=== PATIENT | male | born 1930 | race Two or more races ===

== ENCOUNTER 2017-07-26 13:35 | Inpatient (IN) | payer MEDICARE, MEDICAID ==
[~2017-07-26] VITALS: Ht 172.7 cm; Wt 67.6 kg
[2017-07-26] MEDS ORDERED: Sodium Chloride 500ML 500 ML IV ONE (13:51)
[2017-07-26 14:13] LABS: BASOPHILS % (AUTO) 0.7 % (0.0-2.0); EOSINOPHILS % (AUTO) 1.2 % (0.0-3.0); HEMATOCRIT 50.6 % (42.0-52.0); HEMOGLOBIN 16.3 G/DL (14.2-18.0); LYMPHOCYTES % (AUTO) 11.1 % (20.0-45.0); MEAN CORPUSCULAR VOLUME 87 FL (80-99); MONOCYTES % (AUTO) 5.4 % (1.0-10.0); NEUTROPHILS % (AUTO) 81.7 % (45.0-75.0); PLATELET COUNT 276 K/UL (150-450); RED BLOOD COUNT 5.79 M/UL (4.70-6.10); WHITE BLOOD COUNT 7.9 K/UL (4.8-10.8)
[2017-07-26] MEDS ORDERED: COLACE100 MG ORAL (14:19)
[2017-07-26] MEDS ORDERED: K-TAB10 MEQ PO (14:19)
[2017-07-26] MEDS ORDERED: BENAZEPRIL HCL20 MG ORAL (14:19)
[2017-07-26] MEDS ORDERED: ASPIRIN81 MG ORAL (14:19)
[2017-07-26 14:20] VITALS: BP 112/84
[2017-07-26 14:22] LABS: ANION GAP 10 mmol/L (5-15); BLOOD UREA NITROGEN 29 mg/dL (7-18); CALCIUM 9.7 MG/DL (8.5-10.1); CARBON DIOXIDE 24 MMOL/L (21-32); CHLORIDE 107 MMOL/L (98-107); CREATININE 1.2 MG/DL (0.55-1.30); POTASSIUM 4.1 MMOL/L (3.5-5.1); SODIUM 141 MMOL/L (136-145)
[2017-07-26] MEDS ORDERED: ZOCOR20 MG ORAL (14:22)
[2017-07-26] MEDS ORDERED: SYNTHROID100 MCG ORAL (14:22)
[2017-07-26] MEDS ORDERED: ACETAMINOPHEN325 M1 ORAL (14:22)
[2017-07-26] MEDS ORDERED: NAMENDA10 MG ORAL (14:22)
[2017-07-26] MEDS ORDERED: LACTULOSE20 GM/301 ORAL (14:22)
[2017-07-26] MEDS ORDERED: LOPID600 MG ORAL (14:22)
[2017-07-26 14:36] LABS: ALANINE AMINOTRANSFERASE 23 U/L (12-78); ALBUMIN/GLOBULIN RATIO 0.8 (1.0-2.7); ALKALINE PHOSPHATASE 138 U/L (46-116); ASPARTATE AMINO TRANSFERASE 25 U/L (15-37); BILIRUBIN,TOTAL 0.8 MG/DL (0.2-1.0); CKMB 2.6 NG/ML (0.0-3.6); CREATINE KINASE 379 U/L (26-308)
[2017-07-26] MEDS ORDERED: Azithromycin 500 MG in NS 275 ML IV ONE (15:30)
[2017-07-26] MEDS ORDERED: Piperacillin/Tazobactam 3.375 GM in NS 110 ML IVPB ONE (15:30)
[2017-07-26] MEDS ORDERED: NS 1000ml 2,200 ML IVLG ONE (15:45)
[2017-07-26 15:46] LABS: APPEARANCE,URINE CLOUDY; BILIRUBIN, URINE NEGATIVE (NEGATIVE); GLUCOSE, URINE (UA) NEGATIVE (NEGATIVE); KETONES,URINE 1+ (NEGATIVE); LEUKOCYTE ESTERASE ,URINE 1+ (NEGATIVE); NITRITE,URINE NEGATIVE (NEGATIVE); PH,URINE 5 (4.5-8.0); PROTEIN,URINE 3+ (NEGATIVE); UROBILINOGEN,URINE 4 MG/DL (0.0-1.0)
[2017-07-26] MEDS ORDERED: Zosyn 3.375gm inj ONE (15:46)
[2017-07-26 15:49] LABS: COLOR,URINE YELLOW
--- NOTE | 2017-07-26 15:57 | Emergency Room Report ---
History of Present Illness General Chief Complaint: Dyspnea/Respdistress Source: Medical Record Present Illness HPI 86-year-old male presents ED for evaluation. Patient referred from [facility] facility for evaluation of hypoxia. O2 sat here above 95% on nasal cannula. Patient has dementia is unable to provide any additional history at this time. No signs of distress. No reported chest pain or shortness of breath. No other aggravating relieving factors. No other associated symptoms Allergies: Coded Allergies: No Known Allergies (Unverified , 07/26/17) Patient History Past Medical History: dementia Past Surgical History: none Pertinent Family History: none Social History: Denies: smoking, alcohol use, drug use Immunizations: UTD Reviewed Nursing Documentation: PMH: Agreed, PSxH: Agreed Nursing Documentation-PMH Past Medical History: No History, Except For Hx Hypertension: Yes - Anemia Hx Neurological Problems: Yes - Dementia, Alzheimer's disease Review of Systems All Other Systems: limited Physical Exam Vital Signs Date Time Temp Pulse Resp B/P (MAP) Pulse Ox O2 Delivery O2 Flow Rate FiO2 07/26/17 13:32 98.6 103 14 93/69 90 Nasal Cannula 2.0 98.6 Sp02 EP Interpretation: reviewed, normal General Appearance: no apparent distress, GCS 15, non-toxic, other - dementia Head: normocephalic Eyes: bilateral eye normal inspection, bilateral eye PERRL ENT: normal ENT inspection Neck: normal inspection Respiratory: chest non-tender, crackles, speaking full sentences Cardiovascular #1: regular rate, rhythm, no edema Gastrointestinal: normal inspection Rectal: deferred Genitourinary: no CVA tenderness Musculoskeletal: normal inspection Neurologic: other - dementia Psychiatric: other - dementia Skin: normal inspection Lymphatic: normal inspection Medical Decision Making Diagnostic Impression: Primary Impression: Pneumonia Qualified Codes: J18.1 - Lobar pneumonia, unspecified organism Additional Impressions: Dyspnea Qualified Codes: R06.00 - Dyspnea, unspecified Sepsis Qualified Codes: A41.9 - Sepsis, unspecified organism ER Course Hospital Course 86-year-old M presenting to ED with hypoxia, disypnea Differential diagnoses include: Pneumonia, CHF exacerbation, pneumothorax, fluid overload Clinical course Patient placed on stretcher. 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 After initial history and physical, I ordered labs, IV fluids, EKG , chest x-ray, blood cultures, UA. Patient placed on nasal cannula with O2 saturation improving Labs -no leukocytosis, hemoglobin/hematocrit stable, electrolytes okay, lactate > 3, troponins negative EKG - NSR, no acute ischemic changes interpreted by me CXR - bilateral infiltrates abx given. Given 30 mL per KG fluid bolus Patient O2 sat remains above 90% on nasal cannula. tachycardia improving with IV fluids. Patient is DO NOT RESUSCITATE, selective treatment Case discussed with Dr. Khan and he agreed to the patient to his service for further care and support I feel this is a highly complex case requiring extensive working including EKG/ Rhythm strip, Xray/CT/US, Blood/urine lab work, repeat exams while in ED, and administration of strong opiates/narcotics for pain control, admission to hospital or close patient follow up. Diagnosis - pneumonia, dyspnea, sepsis Patient admitted to telemetry in serious condition Labs Test 07/26/17 13:40 07/26/17 14:40 07/26/17 15:15 White Blood Count 7.9 K/UL (4.8-10.8) Red Blood Count 5.79 M/UL (4.70-6.10) Hemoglobin 16.3 G/DL (14.2-18.0) Hematocrit 50.6 % (42.0-52.0) Mean Corpuscular Volume 87 FL (80-99) Mean Corpuscular Hemoglobin 28.1 PG (27.0-31.0) Mean Corpuscular Hemoglobin Concent 32.2 G/DL (32.0-36.0) Red Cell Distribution Width 13.0 % (11.6-14.8) Platelet Count 276 K/UL (150-450) Mean Platelet Volume 9.3 FL (6.5-10.1) Neutrophils (%) (Auto) 81.7 % (45.0-75.0) Lymphocytes (%) (Auto) 11.1 % (20.0-45.0) Monocytes (%) (Auto) 5.4 % (1.0-10.0) Eosinophils (%) (Auto) 1.2 % (0.0-3.0) Basophils (%) (Auto) 0.7 % (0.0-2.0) Sodium Level 141 MMOL/L (136-145) Potassium Level 4.1 MMOL/L (3.5-5.1) Chloride Level 107 MMOL/L (98-107) Carbon Dioxide Level 24 MMOL/L (21-32) Anion Gap 10 mmol/L (5-15) Blood Urea Nitrogen 29 mg/dL (7-18) Creatinine 1.2 MG/DL (0.55-1.30) Estimat Glomerular Filtration Rate mL/min (>60) Glucose Level 143 MG/DL (74-106) Lactic Acid Level 2.50 mmol/L (0.66-2.22) 1.80 mmol/L (0.66-2.22) Calcium Level 9.7 MG/DL (8.5-10.1) Total Bilirubin 0.8 MG/DL (0.2-1.0) Aspartate Amino Transf (AST/SGOT) 25 U/L (15-37) Alanine Aminotransferase (ALT/SGPT) 23 U/L (12-78) Alkaline Phosphatase 138 U/L (46-116) Total Creatine Kinase 379 U/L (26-308) Creatine Kinase MB 2.6 NG/ML (0.0-3.6) Creatine Kinase MB Relative Index 0.6 Troponin I 0.000 ng/mL (0.000-0.056) Pro-B-Type Natriuretic Peptide 39 pg/mL (0-125) Total Protein 9.2 G/DL (6.4-8.2) Albumin 4.0 G/DL (3.4-5.0) Globulin 5.2 g/dL Albumin/Globulin Ratio 0.8 (1.0-2.7) Urine Color Yellow Urine Appearance Cloudy Urine pH 5 (4.5-8.0) Urine Specific [place] 1.020 (1.005-1.035) Urine Protein 3+ (NEGATIVE) Urine Glucose (UA) Negative (NEGATIVE) Urine Ketones 1+ (NEGATIVE) Urine Occult Blood 5+ (NEGATIVE) Urine Nitrite Negative (NEGATIVE) Urine Bilirubin Negative (NEGATIVE) Urine Urobilinogen 4 MG/DL (0.0-1.0) Urine Leukocyte Esterase 1+ (NEGATIVE) EKG Diagnostic Results Rate: normal Rhythm: NSR ST Segments: no acute changes ASA given to the pt in ED: No Rhythm Strip Diag. Results EP Interpretation: yes Rhythm: NSR, no PVC's, no ectopy Chest X-Ray Diagnostic Results Chest X-Ray Diagnostic Results : Chest X-Ray Ordered: Yes # of Views/Limited/Complete: 1 View Indication: Shortness of Breath EP Interpretation: Yes Interpretation: no consolidation, no pneumothorax, other - L infiltrate Impression: Other - PNA Electronically Signed by: Electronically signed by Viktor Pinzon MD Last Vital Signs Date Time Temp Pulse Resp B/P (MAP) Pulse Ox O2 Delivery O2 Flow Rate FiO2 07/26/17 14:20 99 8 112/84 98 Nasal Cannula 2.0 07/26/17 13:32 98.6 98.6 Status: improved Disposition: ADMITTED INPATIENT Condition: Serious Referrals: Cesar Khan MD (PCP) VIKTOR PINZON M.D. Jul 26, 2017 15:57
[2017-07-26 16:30] VITALS: BP 141/77
[2017-07-26] MEDS ORDERED: Azithromycin 500mg Inj IV ONE (16:47)
[2017-07-26 17:00] VITALS: BP 141/77
[2017-07-26 17:30] VITALS: BP 141/79
[2017-07-26] MEDS ORDERED: LACTULOSE10 GM/153 PO (18:26)
[2017-07-26 20:00] VITALS: BP 142/80
[2017-07-26] MEDS: Lactulose 20gm/30ml UDC ORAL SCH (20:00)
[2017-07-26] MEDS: Docusate 100mg cap ORAL SCH (21:00)
[2017-07-27] VITALS: BP 135/74
--- NOTE | 2017-07-27 02:45 | Consultation ---
DATE OF CONSULTATION: 07/26/2017 CARDIOLOGY CONSULTATION REFERRING PHYSICIAN: Cesar Khan M.D. REASON FOR CONSULTATION: Management of hypotension. HISTORY OF PRESENT ILLNESS: The patient is a resident of a shelter facility under the supervision of Dr. Khan, who was brought in to the emergency department of [facility] for evaluation of hypoxia. At the time of arrival to the hospital, the patient was not communicating verbally due to his underlying dementia. There were no signs of distress. He was found to be hypotensive with blood pressure of 93/69 mmHg and tachycardic with heart rate of 103. He was started on IV fluid as well as IV antibiotic in the emergency department. Cardiology consultation was made at the request of Dr. Khan for assessment and evaluation of this patient. The patient is currently in the emergency department and is seen in Cardiology consultation. He is not verbally communicating due to his underlying dementia. His blood pressure has gone up to 161/91 mmHg after onset of IV fluid. PAST MEDICAL HISTORY: Including dementia and history of anemia. PAST SURGICAL HISTORY: None. MEDICATIONS: List of medications from the nursing facility, acetaminophen 650 mg q.4 h. p.r.n. pain, aspirin 81 mg p.o. daily, benazepril 20 mg p.o. q.12 h., Colace 200 mg p.o. nightly, Lopid 600 mg p.o. daily, lactulose mL three times daily, Synthroid 100 mcg p.o. daily, memantine 10 mg p.o. twice daily, K-Tab 20 mEq p.o. daily, and Zocor 20 mg p.o. nightly. SOCIAL HISTORY: There is no history of tobacco, alcohol, or illicit drug use. FAMILY HISTORY: No premature coronary artery disease in first-degree relative according to the records. REVIEW OF SYSTEMS: A 12-system review cannot be done due to the patient's underlying dementia and being nonverbal. PHYSICAL EXAMINATION: VITAL SIGNS: Blood pressure was 93/69, pulse of 103, respirations of 14, O2 saturation 90% on nasal cannula two liters oxygen, and temperature 98.6 degrees Fahrenheit. GENERAL: The patient is a pleasant 86-year-old gentleman, who is awake, but nonverbal, in no apparent respiratory distress. HEENT: Atraumatic and normocephalic. Anicteric. Pupils are equal, round, and reactive to light and accommodation. Extraocular muscles intact. NECK: JVP is less than 5 cm. No carotid bruits. Carotid upstroke is 2+ bilaterally. CVS: Normal S1 and S2. Regular rate and rhythm. Tachycardic. No murmurs, gallops, or rubs. PMI is at fourth intercostal space in the midclavicular line. LUNGS: Diminished breath sounds in both bases. ABDOMEN: Soft, nontender, and nondistended. No hepatosplenomegaly. Positive bowel sounds. EXTREMITIES: No evidence of edema, clubbing, or cyanosis. LABORATORY AND DIAGNOSTIC DATA: The ECG shows sinus rhythm with left axis deviation, left anterior fascicular block, but no acute ischemic features. Chest x-ray shows bilateral patchy infiltration. Laboratory findings, WBC 7.9, hemoglobin 16.3, hematocrit 50.6, and platelet count is 276,000. Sodium is 141, potassium is 4.1, chloride 107, bicarbonate 24, BUN of 29, creatinine 1.2, and glucose is 143. Calcium is 9.7. Troponin I was 0.0. ProBNP was 39. ASSESSMENT AND PLAN: The patient is a very pleasant 86-year-old gentleman, who is seen in Cardiology consultation at the request of Dr. Khan. 1. Hypotension, could be secondary to hypovolemia, questionable septic shock in view of bilateral infiltration on the chest x-ray. We will like to continue the patient's intravenous fluid as it was started in the emergency department. The patient requires intravenous antibiotic therapy as well. We will continue to monitor the patient once he arrives on the floor. We will start intravenous pressors i.e. Levophed drip should his mean arterial pressure drops below 65 mmHg. 2. A 2D echocardiography will be done to assess the hemodynamics and obtaining left ventricular systolic function. 3. History of Alzheimer's dementia. 4. History of anemia. Total amount of time spent on evaluation of this patient in the emergency department of [facility] was 45 minutes. I would like to thank, , for the courtesy of this consultation. Frank Crockett M.D. DR: Jose JOB#: [id number] CC:
[2017-07-27 04:00] VITALS: BP 131/66
[2017-07-27 08:00] VITALS: BP 124/57
[2017-07-27] MEDS: Aspirin Baby 81mg ORAL SCH (09:00)
[2017-07-27] MEDS: Memantine 10mg tab ORAL SCH ×2 (09:00→18:44)
[2017-07-27] MEDS: Lactulose 20gm/30ml UDC ORAL SCH ×3 (09:00→18:43)
[2017-07-27] MEDS ORDERED: Lactulose 20gm/30ml UDC ORAL ONE (09:00)
[2017-07-27 09:09] LABS: BASOPHILS % (AUTO) 0.9 % (0.0-2.0); EOSINOPHILS % (AUTO) 5.4 % (0.0-3.0); HEMATOCRIT 39.6 % (42.0-52.0); HEMOGLOBIN 13.2 G/DL (14.2-18.0); LYMPHOCYTES % (AUTO) 18.2 % (20.0-45.0); MEAN CORPUSCULAR VOLUME 88 FL (80-99); MONOCYTES % (AUTO) 8.4 % (1.0-10.0); NEUTROPHILS % (AUTO) 67.1 % (45.0-75.0); PLATELET COUNT 220 K/UL (150-450); RED BLOOD COUNT 4.52 M/UL (4.70-6.10); RED CELL DISTRIBUTION WIDTH 13.1 % (11.6-14.8); WHITE BLOOD COUNT 4.8 K/UL (4.8-10.8)
[2017-07-27 09:57] LABS: ALANINE AMINOTRANSFERASE 17 U/L (12-78); ALBUMIN 3.1 G/DL (3.4-5.0); ALBUMIN/GLOBULIN RATIO 0.7 (1.0-2.7); ALKALINE PHOSPHATASE 112 U/L (46-116); ANION GAP 10 mmol/L (5-15); ASPARTATE AMINO TRANSFERASE 21 U/L (15-37); BILIRUBIN,TOTAL 0.7 MG/DL (0.2-1.0); BLOOD UREA NITROGEN 21 mg/dL (7-18); CALCIUM 8.4 MG/DL (8.5-10.1); CARBON DIOXIDE 23 MMOL/L (21-32); CHLORIDE 112 MMOL/L (98-107); CREATININE 0.9 MG/DL (0.55-1.30); SODIUM 145 MMOL/L (136-145)
[2017-07-27 12:00] VITALS: BP 124/58
--- NOTE | 2017-07-27 12:08 | Diagnostic Imaging Report ---
Indication: Dyspnea Comparison: None A single view chest radiograph was obtained. Findings: There is elevation of the left hemidiaphragm. Markings are prominent at the lung bases likely due to atelectasis. Bones are osteopenic. IMPRESSION: Basilar atelectasis. Mildly elevated left hemidiaphragm
[2017-07-27] MEDS: cefTRIAXone 1 GM in NS 55 ML IVPB SCH (14:54)
[2017-07-27] MEDS: Azithromycin 250mg tab ORAL SCH (14:56)
[2017-07-27 16:00] VITALS: BP 118/80
[2017-07-27 20:00] VITALS: BP 122/79
--- NOTE | 2017-07-27 21:15 | Consultation ---
DATE OF CONSULTATION: 07/27/2017 INFECTIOUS DISEASE CONSULTATION CONSULTING PHYSICIAN: Jacky Upton M.D. PRIMARY ATTENDING PHYSICIAN: Cesar Khan M.D. REASON FOR CONSULTATION: Pneumonia. HISTORY OF PRESENT ILLNESS: The patient is an 86-year-old male admitted yesterday from a [facility] facility because of hypoxemia. In the hospital, the patient was found to be hypotensive and tachycardic. He has no leukocytosis and no fever. The patient is not a source of history. PAST MEDICAL HISTORY: Significant for Alzheimer dementia, anemia, hypothyroidism, hypertension, and hyperlipidemia. CODE STATUS: DNR/DNI. ALLERGIES: No known drug allergy. MEDICATIONS: Getting aspirin, Namenda, potassium chloride, levothyroxine, Colace, lactulose, benazepril, got a dose of Zosyn and Zithromax in the ER. SOCIAL HISTORY: assisted resident. No history of alcohol, drug abuse, or smoking. No other history can be obtained by the patient. PHYSICAL EXAMINATION: VITAL SIGNS: Temperature 98.5, blood pressure 124/57, pulse 95, but he was earlier bradycardic with pulse of 48. GENERAL APPEARANCE: No acute distress. HEENT: Head and neck, pink conjunctiva. Has no teeth. HEART: S1 and S2, regular. LUNGS: Clear. ABDOMEN: Soft. EXTREMITIES: No edema. SKIN: No pressure ulcer. LABORATORY AND DIAGNOSTIC DATA: Sodium 145, potassium 4, chloride 112, bicarb 23, BUN 21, and creatinine 0.9. Lactic acid initially was elevated to 2.5, now it is 1.8. WBC 4.8, hemoglobin 13.2, hematocrit 39.6, and platelets 220. UA showed RBCs too numerous to count, WBCs 5 to 10. C. difficile test was negative. Influenza A and B was negative. Urine culture so far is negative. Chest x-ray showed some atelectasis and/or infiltrate in the left side. IMPRESSION: Pneumonia with hypoxemia, hypotension, and tachycardia. The patient has Alzheimer dementia, hypothyroidism. RECOMMENDATIONS: 1. We will continue Zithromax. 2. We will start the patient on Rocephin. 3. We will follow up the culture. At the end of my exam, I thank Dr. Khan for involving me in the care of this patient. Jacky Upton M.D. DR: Cyndi JOB#: [id number] CC: PABLITO
[2017-07-27] MEDS: Docusate 100mg cap ORAL SCH (21:54)
[2017-07-28] VITALS: BP 130/68
[2017-07-28 04:00] VITALS: BP 138/80
[2017-07-28 08:00] VITALS: BP 167/117
[2017-07-28] MEDS: Azithromycin 250mg tab ORAL SCH (08:54)
[2017-07-28] MEDS: Aspirin Baby 81mg ORAL SCH (08:54)
[2017-07-28] MEDS: Memantine 10mg tab ORAL SCH ×2 (08:55→17:27)
[2017-07-28] MEDS: Lactulose 20gm/30ml UDC ORAL SCH ×2 (08:55→13:38)
--- NOTE | 2017-07-28 09:15 | History and Physical Report ---
DATE OF ADMISSION: 07/26/2017 HISTORY OF PRESENT ILLNESS: The patient comes in from a custodial because of shortness of breath, admitted for rule out sepsis and pneumonia. The patient was also hypoxic and tachycardic at the custodial. The patient has advanced dementia, cannot obtain a reliable history from the patient. Again, cannot obtain any history from the patient due to advanced dementia. PAST MEDICAL HISTORY: GERD, hypertension, advanced dementia, and rash. PAST SURGICAL HISTORY: Denies any surgery. ALLERGIES: Apparently no allergies. MEDICATIONS: Refer to his med list in the chart. FAMILY HISTORY: Noncontributory. SOCIAL HISTORY: Again, he has no history of smoking, alcohol, or illicit drugs. REVIEW OF SYSTEMS: Unable to obtain. Poor historian. PHYSICAL EXAMINATION: GENERAL: Well developed . HEENT: PERRLA. NECK: Supple. CHEST: Clear to auscultation. Decreased breath sounds on both sides. CARDIOVASCULAR: The patient was initially tachycardic. ABDOMEN: Soft, nontender, and nondistended. No organomegaly. EXTREMITIES: No edema. NEUROLOGIC: Does not follow neurological exam. ASSESSMENT AND PLAN: 1. Sepsis. 2. Tachycardia. 3. Hypoxia. Admitted for shortness of breath, sepsis, pneumonia, tachycardia, hypoxia, and pneumonia. I have asked Dr. Eric Polanco, Dr. Parikh, and Dr. Crockett to see the patient for the above-mentioned diagnoses and treatment. Antibiotics per Infectious Disease, and we will monitor the patient closely. We will check oxygen levels every day and we will monitor the patient closely. Cesar Khan M.D. DR: JESSICA JOB#: [id number] CC:
--- NOTE | 2017-07-28 11:03 | Infectious Diseases Prog Note ---
Assessment/Plan Assessment/Plan A: Pneumonia Atelectasis Alzheimer dementia HPN P: Continue Zithromax & Rocephin Subjective ROS Limited/Unobtainable: Yes Allergies: Coded Allergies: No Known Allergies (Unverified , 07/26/17) Objective Vital Signs Last 24 Hour Vital Signs Date Time Temp Pulse Resp B/P (MAP) Pulse Ox O2 Delivery O2 Flow Rate FiO2 07/28/17 08:55 167/117 07/28/17 08:00 97.2 90 20 167/117 96 Room Air 97.2 07/28/17 04:00 97.9 89 19 138/80 97 Room Air 97.9 07/28/17 04:00 99 07/28/17 00:00 110 07/28/17 00:00 97.8 92 20 130/68 97 Room Air 97.8 07/27/17 21:54 118/80 07/27/17 20:00 98.0 100 22 122/79 97 Room Air 98.0 07/27/17 16:00 97.6 87 22 118/80 96 Room Air 97.6 07/27/17 16:00 86 07/27/17 12:00 44 07/27/17 12:00 97.0 53 19 124/58 99 Room Air 97.0 Height (Feet): 5 Height (Inches): 8.00 Weight (Pounds): 149 General Appearance: no acute distress HEENT: mucous membranes moist Respiratory/Chest: lungs clear Cardiovascular: normal rate Abdomen: soft, non tender Extremities: no edema Neurologic/Psychiatric: disoriented Microbiology Date/Time Source Procedure Growth Status 07/26/17 13:30 Blood Blood Culture - Preliminary NO GROWTH AFTER 24 HOURS Resulted 07/26/17 13:30 Blood Blood Culture - Preliminary NO GROWTH AFTER 24 HOURS Resulted 07/26/17 18:00 Nasal Nares MRSA Culture - Final NO METHICILLIN RESISTANT STAPH AUREUS... Complete 07/26/17 14:15 Nasal Nares Influenza Types A,B Antigen (LLUVIA) - Final Complete 07/26/17 13:40 Stool Clostridium difficile Toxin Assay - Final Complete 07/26/17 15:15 Urine,Clean Catch Urine Culture - Preliminary NO GROWTH AFTER 24 HOURS Resulted 07/26/17 18:00 Rectum VRE Culture - Final NO VANCOMYCIN RESISTANT ENTEROCOCCUS ... Complete Current Medications Medications (Trade) Dose Ordered Sig/Rex Route PRN Reason Start Time Stop Time Status Last Admin Dose Admin Acetaminophen (Tylenol) 650 mg Q6HR PRN ORAL Fever/Headache/Mild Pain 07/26/17 19:30 08/25/17 19:29 Aspirin (ASA) 81 mg DAILY ORAL 07/27/17 09:00 08/26/17 08:59 07/28/17 08:54 Azithromycin (Zithromax) 250 mg DAILY ORAL 07/27/17 12:00 08/03/17 11:59 07/28/17 08:54 Benazepril HCl (Lotensin) 20 mg Q12HR ORAL 07/26/17 21:00 08/25/17 20:59 07/28/17 08:55 Ceftriaxone Sodium 1 gm/ Sodium Chloride 55 ml @ 110 mls/hr Q24H IVPB 07/27/17 13:00 08/03/17 12:59 07/27/17 14:54 Dextrose (Dextrose 50%) STAT PRN IV Hypoglycemia 07/26/17 19:30 08/25/17 19:29 Docusate Sodium (Colace) 200 mg BEDTIME ORAL 07/26/17 21:00 08/25/17 20:59 07/27/17 21:54 Lactulose (Cephulac) 60 gm TID ORAL 07/26/17 20:00 08/25/17 19:59 07/28/17 08:55 Levothyroxine Sodium (Synthroid) 100 mcg DAILY@0630 ORAL 07/27/17 06:30 08/26/17 06:29 07/28/17 06:33 Memantine (Namenda) 10 mg BID ORAL 07/27/17 09:00 08/26/17 08:59 07/28/17 08:55 Potassium Chloride (K-Dur) 20 meq DAILY ORAL 07/27/17 09:00 08/26/17 08:59 07/28/17 08:55 AUDRA MORALES Jul 28, 2017 11:03
[2017-07-28 12:00] VITALS: BP 130/88
--- NOTE | 2017-07-28 13:40 | Consultation ---
History of Present Illness General Date patient seen: Jul 28, 2017 Chief Complaint: Dyspnea/Respdistress Referring physician: Dr. Khan Reason for Consultation: dyspnea Present Illness HPI 86-year-old male with hx of dementia, hypothyroid, hypertension, snf resident presented to ED for evaluation of hypoxia. O2 sat here above 95% on nasal cannula. No signs of distress. No reported chest pain or shortness of breath. No other aggravating relieving factors. No other associated symptoms. Pt can't give any history, but looks comfortable. Allergies: Coded Allergies: No Known Allergies (Unverified , 07/26/17) Medication History Scheduled Aspirin* (Aspirin*), 81 MG ORAL DAILY, (Reported) Benazepril Hcl* (Benazepril Hcl*), 20 MG ORAL EVERY 12 HOURS, (Reported) Docusate Sodium* (Colace*), 200 MG ORAL BEDTIME, (Reported) Gemfibrozil* (Lopid*), 600 MG ORAL DAILY, (Reported) Lactulose (Lactulose*), 90 ML ORAL TID, (Reported) Lactulose (Lactulose), 60 GM PO TID, (Reported) Levothyroxine Sodium* (Synthroid*), 100 MCG ORAL DAILY, (Reported) Memantine Hcl* (Namenda*), 10 MG ORAL TWICE A DAY, (Reported) Potassium Chloride (K-Tab), 20 MEQ PO DAILY, (Reported) Simvastatin (Zocor), 20 MG ORAL BEDTIME, (Reported) Scheduled PRN Acetaminophen* (Acetaminophen 325MG Tablet*), 650 MG ORAL Q6H PRN for For Pain, (Reported) Patient History Healthcare decision maker Resuscitation status Do Not Resuscitate Advanced Directive on File Past Medical/Surgical History Past Medical/Surgical History: (1) At high risk for aspiration (2) Hypothyroid (3) Dementia Review of Systems All Other Systems: negative except mentioned in HPI Physical Exam General Appearance: WD/WN Lines, tubes and drains: peripheral HEENT: normocephalic, atraumatic Neck: non-tender, normal alignment Respiratory/Chest: chest wall non-tender, lungs clear Breasts: no masses Cardiovascular/Chest: normal peripheral pulses Abdomen: normal bowel sounds, soft Genitourinary/Rectal: normal genital exam Extremities: normal range of motion Skin Exam: normal pigmentation Last 24 Hour Vital Signs Date Time Temp Pulse Resp B/P (MAP) Pulse Ox O2 Delivery O2 Flow Rate FiO2 07/28/17 12:00 98.0 79 130/88 97 Room Air 98.0 07/28/17 08:55 167/117 07/28/17 08:00 101 07/28/17 08:00 97.2 90 20 167/117 96 Room Air 97.2 07/28/17 04:00 97.9 89 19 138/80 97 Room Air 97.9 07/28/17 04:00 99 07/28/17 00:00 110 07/28/17 00:00 97.8 92 20 130/68 97 Room Air 97.8 07/27/17 21:54 118/80 07/27/17 20:00 98.0 100 22 122/79 97 Room Air 98.0 07/27/17 16:00 97.6 87 22 118/80 96 Room Air 97.6 07/27/17 16:00 86 Intake and Output 07/27/17 07/28/17 19:00 07:00 Intake Total 355 ml Output Total 400 ml Balance 355 ml -400 ml Intake Oral 300 ml IV Total 55 ml Output Urine Total 400 ml # Voids 1 Height (Feet): 5 Height (Inches): 8.00 Weight (Pounds): 149 Medications Current Medications Medications (Trade) Dose Ordered Sig/Rex Route PRN Reason Start Time Stop Time Status Last Admin Dose Admin Acetaminophen (Tylenol) 650 mg Q6HR PRN ORAL Fever/Headache/Mild Pain 07/26/17 19:30 08/25/17 19:29 Aspirin (ASA) 81 mg DAILY ORAL 07/27/17 09:00 08/26/17 08:59 07/28/17 08:54 Azithromycin (Zithromax) 250 mg DAILY ORAL 07/27/17 12:00 08/03/17 11:59 07/28/17 08:54 Benazepril HCl (Lotensin) 20 mg Q12HR ORAL 07/26/17 21:00 08/25/17 20:59 07/28/17 08:55 Ceftriaxone Sodium 1 gm/ Sodium Chloride 55 ml @ 110 mls/hr Q24H IVPB 07/27/17 13:00 08/03/17 12:59 07/27/17 14:54 Dextrose (Dextrose 50%) STAT PRN IV Hypoglycemia 07/26/17 19:30 08/25/17 19:29 Docusate Sodium (Colace) 200 mg BEDTIME ORAL 07/26/17 21:00 08/25/17 20:59 07/27/17 21:54 Lactulose (Cephulac) 60 gm TID ORAL 07/26/17 20:00 08/25/17 19:59 07/28/17 08:55 Levothyroxine Sodium (Synthroid) 100 mcg DAILY@0630 ORAL 07/27/17 06:30 08/26/17 06:29 07/28/17 06:33 Memantine (Namenda) 10 mg BID ORAL 07/27/17 09:00 08/26/17 08:59 07/28/17 08:55 Potassium Chloride (K-Dur) 20 meq DAILY ORAL 07/27/17 09:00 08/26/17 08:59 07/28/17 08:55 Assessment/Plan Problem List: (1) Sepsis ICD Codes: A41.9 - Sepsis, unspecified organism SNOMED: 99984295 Qualifiers: Qualified Codes: A41.9 - Sepsis, unspecified organism (2) At high risk for aspiration ICD Codes: Z91.89 - Other specified personal risk factors, not elsewhere classified SNOMED: 343329226 (3) Dementia ICD Codes: F03.90 - Unspecified dementia without behavioral disturbance SNOMED: 07563131 (4) Hypothyroid ICD Codes: E03.9 - Hypothyroidism, unspecified SNOMED: 74621630 (5) Pneumonia ICD Codes: J18.9 - Pneumonia, unspecified organism SNOMED: 209656789 Qualifiers: Qualified Codes: J18.1 - Lobar pneumonia, unspecified organism Assessment/Plan respiratory treatment npo swallow evaluation titrate fio2 to sat of 92% sputum induction abx as per ID check echo cardiac evaluation, ongoing med/surg considering IDA COLVIN Jul 28, 2017 13:40
[2017-07-28] MEDS: cefTRIAXone 1 GM in NS 55 ML IVPB SCH (13:43)
[2017-07-28 16:00] VITALS: BP 111/67
[2017-07-28] MEDS ORDERED: Lactulose 20gm/30ml UDC ORAL SCH (18:00)
--- NOTE | 2017-07-28 20:34 | General Progress Note ---
Assessment/Plan Problem List: (1) Dementia ICD Codes: F03.90 - Unspecified dementia without behavioral disturbance SNOMED: 96877163 (2) Pneumonia ICD Codes: J18.9 - Pneumonia, unspecified organism SNOMED: 538879339 Qualifiers: Qualified Codes: J18.1 - Lobar pneumonia, unspecified organism (3) Sepsis ICD Codes: A41.9 - Sepsis, unspecified organism SNOMED: 76445180 Qualifiers: Qualified Codes: A41.9 - Sepsis, unspecified organism Status: progressing Assessment/Plan afebrile diarrrhea dc lactulose pna sepsis abx per id Subjective Allergies: Coded Allergies: No Known Allergies (Unverified , 07/26/17) Subjective diearrhea Objective Last 24 Hour Vital Signs Date Time Temp Pulse Resp B/P (MAP) Pulse Ox O2 Delivery O2 Flow Rate FiO2 07/28/17 16:00 98.6 96 20 111/67 93 Room Air 98.6 07/28/17 16:00 98.6 96 20 111/67 93 98.6 07/28/17 12:00 95 07/28/17 12:00 98.0 79 130/88 97 Room Air 98.0 07/28/17 08:55 167/117 07/28/17 08:00 101 07/28/17 08:00 97.2 90 20 167/117 96 Room Air 97.2 07/28/17 04:00 97.9 89 19 138/80 97 Room Air 97.9 07/28/17 04:00 99 07/28/17 00:00 110 07/28/17 00:00 97.8 92 20 130/68 97 Room Air 97.8 07/27/17 21:54 118/80 Intake and Output 07/27/17 07/28/17 19:00 07:00 Intake Total 355 ml Output Total 400 ml Balance 355 ml -400 ml Intake Oral 300 ml IV Total 55 ml Output Urine Total 400 ml # Voids 1 Height (Feet): 5 Height (Inches): 8.00 Weight (Pounds): 149 Cardiovascular: normal rate Respiratory/Chest: lungs clear Abdomen: soft Cesar Khan MD Jul 28, 2017 20:34
[2017-07-28 20:36] VITALS: BP 142/70
[2017-07-28] MEDS ORDERED: Docusate 100mg cap ORAL SCH (21:00)
[2017-07-29] VITALS: BP 121/96
[2017-07-29 04:00] VITALS: BP 100/55
[2017-07-29 08:00] VITALS: BP 149/99
[2017-07-29 08:47] LABS: BASOPHILS % (AUTO) 0.6 % (0.0-2.0); HEMATOCRIT 45.6 % (42.0-52.0); HEMOGLOBIN 15.2 G/DL (14.2-18.0); LYMPHOCYTES % (AUTO) 12.3 % (20.0-45.0); MEAN CORPUSCULAR VOLUME 87 FL (80-99); MONOCYTES % (AUTO) 6.5 % (1.0-10.0); NEUTROPHILS % (AUTO) 79.6 % (45.0-75.0); PLATELET COUNT 233 K/UL (150-450); RED BLOOD COUNT 5.25 M/UL (4.70-6.10); RED CELL DISTRIBUTION WIDTH 12.6 % (11.6-14.8); WHITE BLOOD COUNT 8.5 K/UL (4.8-10.8)
[2017-07-29] MEDS ORDERED: Aspirin Baby 81mg ORAL SCH (09:00)
[2017-07-29] MEDS ORDERED: Azithromycin 250mg tab ORAL SCH (09:00)
[2017-07-29] MEDS: Memantine 10mg tab ORAL SCH (09:23)
[2017-07-29 09:41] LABS: ALANINE AMINOTRANSFERASE 21 U/L (12-78); ALBUMIN 3.3 G/DL (3.4-5.0); ALBUMIN/GLOBULIN RATIO 0.6 (1.0-2.7); ALKALINE PHOSPHATASE 112 U/L (46-116); ANION GAP 13 mmol/L (5-15); ASPARTATE AMINO TRANSFERASE 20 U/L (15-37); BILIRUBIN,TOTAL 0.8 MG/DL (0.2-1.0); BLOOD UREA NITROGEN 21 mg/dL (7-18); CALCIUM 9.1 MG/DL (8.5-10.1); CARBON DIOXIDE 22 MMOL/L (21-32); CHLORIDE 112 MMOL/L (98-107); CREATININE 1.1 MG/DL (0.55-1.30); POTASSIUM 3.6 MMOL/L (3.5-5.1); SODIUM 147 MMOL/L (136-145)
--- NOTE | 2017-07-29 10:48 | Diagnostic Imaging Report ---
APPROVED REPORT CPT Code: 31296 Present Symptoms Comments: R/O DVT Comments Technically difficult study (bilateral contractures of the hip and knee). RIGHT LEG: Venous imaging reveals recanalized chronic thrombus in the superficial femoral vein. The remainder of the deep venous system is within normal limits. There is no evidence of thrombus in the common femoral, popliteal or calf veins. The greater saphenous vein is also within normal limits. Doppler indicates normal spontaneous flow within these segments. LEFT LEG: Venous imaging reveals a patent deep venous system. There is no evidence of thrombus within the femoral, popliteal or tibial segments. The greater saphenous vein is also within normal limits. Doppler indicates normal spontaneous flow within these segments. There is no evidence of acute deep vein thrombosis.
--- NOTE | 2017-07-29 11:18 | Diagnostic Imaging Report ---
Indication: Dyspnea Comparison: 07/26/2017 A single view chest radiograph was obtained. Findings: Lung volumes are low. There is basilar atelectasis. Heart size is prominent. IMPRESSION: No change from the prior exam
--- NOTE | 2017-07-29 11:58 | Infectious Diseases Prog Note ---
Assessment/Plan Assessment/Plan A: Pneumonia Atelectasis Alzheimer dementia HPN P: Continue Zithromax & Rocephin Subjective ROS Limited/Unobtainable: Yes Allergies: Coded Allergies: No Known Allergies (Unverified , 07/26/17) Objective Vital Signs Last 24 Hour Vital Signs Date Time Temp Pulse Resp B/P (MAP) Pulse Ox O2 Delivery O2 Flow Rate FiO2 07/29/17 09:22 149/99 07/29/17 08:00 97.2 100 20 149/99 94 Room Air 97.2 07/29/17 04:00 98.2 86 19 100/55 96 Room Air 98.2 07/29/17 00:00 93 Room Air 07/29/17 00:00 98.0 113 20 121/96 93 Room Air 98.0 07/28/17 20:40 142/70 07/28/17 20:36 95 Room Air 07/28/17 20:36 98.2 97 17 142/70 95 98.2 07/28/17 16:00 98.6 96 20 111/67 93 Room Air 98.6 07/28/17 16:00 98.6 96 20 111/67 93 98.6 07/28/17 12:00 95 07/28/17 12:00 98.0 79 130/88 97 Room Air 98.0 Height (Feet): 5 Height (Inches): 8.00 Weight (Pounds): 149 General Appearance: no acute distress HEENT: mucous membranes moist Respiratory/Chest: lungs clear Cardiovascular: tachycardia Abdomen: soft, non tender Extremities: no edema Neurologic/Psychiatric: other - sleeping Microbiology Date/Time Source Procedure Growth Status 07/26/17 13:30 Blood Blood Culture - Preliminary NO GROWTH AFTER 24 HOURS Resulted 07/26/17 13:30 Blood Blood Culture - Preliminary NO GROWTH AFTER 24 HOURS Resulted 07/26/17 18:00 Nasal Nares MRSA Culture - Final NO METHICILLIN RESISTANT STAPH AUREUS... Complete 07/26/17 14:15 Nasal Nares Influenza Types A,B Antigen (LLUVIA) - Final Complete 07/26/17 13:40 Stool Clostridium difficile Toxin Assay - Final Complete 07/26/17 15:15 Urine,Clean Catch Urine Culture - Final NO GROWTH AFTER 48 HOURS Complete 07/26/17 18:00 Rectum VRE Culture - Final NO VANCOMYCIN RESISTANT ENTEROCOCCUS ... Complete Laboratory Tests Test 07/29/17 08:25 White Blood Count 8.5 K/UL (4.8-10.8) Red Blood Count 5.25 M/UL (4.70-6.10) Hemoglobin 15.2 G/DL (14.2-18.0) Hematocrit 45.6 % (42.0-52.0) Mean Corpuscular Volume 87 FL (80-99) Mean Corpuscular Hemoglobin 29.0 PG (27.0-31.0) Mean Corpuscular Hemoglobin Concent 33.4 G/DL (32.0-36.0) Red Cell Distribution Width 12.6 % (11.6-14.8) Platelet Count 233 K/UL (150-450) Mean Platelet Volume 10.0 FL (6.5-10.1) Neutrophils (%) (Auto) 79.6 % (45.0-75.0) H Lymphocytes (%) (Auto) 12.3 % (20.0-45.0) L Monocytes (%) (Auto) 6.5 % (1.0-10.0) Eosinophils (%) (Auto) 1.0 % (0.0-3.0) Basophils (%) (Auto) 0.6 % (0.0-2.0) Sodium Level 147 MMOL/L (136-145) H Potassium Level 3.6 MMOL/L (3.5-5.1) Chloride Level 112 MMOL/L (98-107) H Carbon Dioxide Level 22 MMOL/L (21-32) Anion Gap 13 mmol/L (5-15) Blood Urea Nitrogen 21 mg/dL (7-18) H Creatinine 1.1 MG/DL (0.55-1.30) Estimat Glomerular Filtration Rate mL/min (>60) Glucose Level 143 MG/DL (74-106) H Calcium Level 9.1 MG/DL (8.5-10.1) Total Bilirubin 0.8 MG/DL (0.2-1.0) Aspartate Amino Transf (AST/SGOT) 20 U/L (15-37) Alanine Aminotransferase (ALT/SGPT) 21 U/L (12-78) Alkaline Phosphatase 112 U/L (46-116) Pro-B-Type Natriuretic Peptide 390 pg/mL (0-125) H Total Protein 8.4 G/DL (6.4-8.2) H Albumin 3.3 G/DL (3.4-5.0) L Globulin 5.1 g/dL Albumin/Globulin Ratio 0.6 (1.0-2.7) L Current Medications Medications (Trade) Dose Ordered Sig/Rex Route PRN Reason Start Time Stop Time Status Last Admin Dose Admin Acetaminophen (Tylenol) 650 mg Q6HR PRN ORAL Fever/Headache/Mild Pain 07/28/17 18:00 08/25/17 19:29 Aspirin (ASA) 81 mg DAILY ORAL 07/29/17 09:00 08/26/17 08:59 07/29/17 09:23 Azithromycin (Zithromax) 250 mg DAILY ORAL 07/29/17 09:00 08/03/17 11:59 07/29/17 09:23 Benazepril HCl (Lotensin) 20 mg Q12HR ORAL 07/28/17 21:00 08/25/17 20:59 07/29/17 09:22 Ceftriaxone Sodium 1 gm/ Sodium Chloride 55 ml @ 110 mls/hr Q24H IVPB 07/29/17 13:00 08/03/17 12:59 Dextrose (Dextrose 50%) STAT PRN IV Hypoglycemia 07/28/17 19:30 08/25/17 19:29 Docusate Sodium (Colace) 200 mg BEDTIME ORAL 07/28/17 21:00 08/25/17 20:59 Enoxaparin Sodium (Lovenox) 60 mg EVERY 12 HOURS SUBQ 07/29/17 21:00 08/28/17 20:59 UNV Levothyroxine Sodium (Synthroid) 100 mcg DAILY@0630 ORAL 07/29/17 06:30 08/26/17 06:29 07/29/17 05:11 Memantine (Namenda) 10 mg BID ORAL 07/28/17 18:00 08/26/17 08:59 07/29/17 09:23 Potassium Chloride (K-Dur) 20 meq DAILY ORAL 07/29/17 09:00 08/26/17 08:59 07/29/17 09:23 Warfarin Sodium (Coumadin per pharmacy) 1 ea DAILY PRN MISC Per rx protocol 07/29/17 11:30 08/28/17 11:29 UNV AUDRA MORALES Jul 29, 2017 11:58
[2017-07-29 12:00] VITALS: BP 108/58
--- NOTE | 2017-07-29 12:16 | General Progress Note ---
Assessment/Plan Problem List: (1) Dementia ICD Codes: F03.90 - Unspecified dementia without behavioral disturbance SNOMED: 96876670 (2) Pneumonia ICD Codes: J18.9 - Pneumonia, unspecified organism SNOMED: 929750130 Qualifiers: Qualified Codes: J18.1 - Lobar pneumonia, unspecified organism (3) Sepsis ICD Codes: A41.9 - Sepsis, unspecified organism SNOMED: 60325784 Qualifiers: Qualified Codes: A41.9 - Sepsis, unspecified organism Status: progressing Assessment/Plan contracted afebrile dvt.consulted heme/onc.treatment per heme/onc pna sepsis Subjective ROS Limited/Unobtainable: Yes Allergies: Coded Allergies: No Known Allergies (Unverified , 07/26/17) Subjective diearrhea Objective Last 24 Hour Vital Signs Date Time Temp Pulse Resp B/P (MAP) Pulse Ox O2 Delivery O2 Flow Rate FiO2 07/29/17 09:22 149/99 07/29/17 08:00 97.2 100 20 149/99 94 Room Air 97.2 07/29/17 04:00 98.2 86 19 100/55 96 Room Air 98.2 07/29/17 00:00 93 Room Air 07/29/17 00:00 98.0 113 20 121/96 93 Room Air 98.0 07/28/17 20:40 142/70 07/28/17 20:36 95 Room Air 07/28/17 20:36 98.2 97 17 142/70 95 98.2 07/28/17 16:00 98.6 96 20 111/67 93 Room Air 98.6 07/28/17 16:00 98.6 96 20 111/67 93 98.6 Intake and Output 07/28/17 07/29/17 19:00 07:00 Intake Total 245 ml Balance 245 ml Intake Oral 190 ml IV Total 55 ml # Voids 2 2 # Bowel Movements 2 Laboratory Tests 07/29/17 08:25: White Blood Count 8.5, Red Blood Count 5.25, Hemoglobin 15.2, Hematocrit 45.6, Mean Corpuscular Volume 87, Mean Corpuscular Hemoglobin 29.0, Mean Corpuscular Hemoglobin Concent 33.4, Red Cell Distribution Width 12.6, Platelet Count 233, Mean Platelet Volume 10.0, Neutrophils (%) (Auto) 79.6H, Lymphocytes (%) (Auto) 12.3L, Monocytes (%) (Auto) 6.5, Eosinophils (%) (Auto) 1.0, Basophils (%) (Auto ) 0.6, Sodium Level 147H, Potassium Level 3.6, Chloride Level 112H, Carbon Dioxide Level 22, Anion Gap 13, Blood Urea Nitrogen 21H, Creatinine 1.1, Estimat Glomerular Filtration Rate , Glucose Level 143H, Calcium Level 9.1, Total Bilirubin 0.8, Aspartate Amino Transf (AST/SGOT) 20, Alanine Aminotransferase (ALT/SGPT) 21, Alkaline Phosphatase 112, Pro-B-Type Natriuretic Peptide 390H, Total Protein 8.4H, Albumin 3.3L, Globulin 5.1, Albumin/Globulin Ratio 0.6L Height (Feet): 5 Height (Inches): 8.00 Weight (Pounds): 149 General Appearance: lethargic, confused Cesar Khan MD Jul 29, 2017 12:16
[2017-07-29] MEDS ORDERED: LEVAQUIN750 MG ORAL (12:50)
[2017-07-29] MEDS ORDERED: cefTRIAXone 1 GM in NS 55 ML IVPB SCH (13:00)
--- NOTE | 2017-07-29 13:23 | Pulmonology Progress Note ---
Assessment/Plan Problems: (1) Sepsis (2) At high risk for aspiration (3) Dementia (4) Hypothyroid (5) Pneumonia Assessment/Plan continue abx check cultures titrate fio2 to sat of 92% chest pt comfort feeding, since pt's family refusing PEG placement. Subjective ROS Limited/Unobtainable: Yes Interval Events: awake, looks comfortable Allergies: Coded Allergies: No Known Allergies (Unverified , 07/26/17) Objective Last 24 Hour Vital Signs Date Time Temp Pulse Resp B/P (MAP) Pulse Ox O2 Delivery O2 Flow Rate FiO2 07/29/17 12:00 97.9 81 18 108/58 96 Room Air 97.9 07/29/17 09:22 149/99 07/29/17 08:00 97.2 100 20 149/99 94 Room Air 97.2 07/29/17 04:00 98.2 86 19 100/55 96 Room Air 98.2 07/29/17 00:00 93 Room Air 07/29/17 00:00 98.0 113 20 121/96 93 Room Air 98.0 07/28/17 20:40 142/70 07/28/17 20:36 95 Room Air 07/28/17 20:36 98.2 97 17 142/70 95 98.2 07/28/17 16:00 98.6 96 20 111/67 93 Room Air 98.6 07/28/17 16:00 98.6 96 20 111/67 93 98.6 Intake and Output 07/28/17 07/29/17 19:00 07:00 Intake Total 245 ml Balance 245 ml Intake Oral 190 ml IV Total 55 ml # Voids 2 2 # Bowel Movements 2 General Appearance: cachetic HEENT: normocephalic, atraumatic Respiratory/Chest: chest wall non-tender, crackles/rales Cardiovascular: normal peripheral pulses, normal rate, regular rhythm Abdomen: normal bowel sounds, soft, non tender Genitourinary: normal external genitalia Extremities: no cyanosis Neurologic/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 Complete 07/26/17 14:15 Nasal Nares Influenza Types A,B Antigen (LLUVIA) - Final Complete 07/26/17 13:40 Stool Clostridium difficile Toxin Assay - Final Complete 07/26/17 15:15 Urine,Clean Catch Urine Culture - Final NO GROWTH AFTER 48 HOURS Complete 07/26/17 18:00 Rectum VRE Culture - Final NO VANCOMYCIN RESISTANT ENTEROCOCCUS ... Complete Laboratory Tests 07/29/17 08:25: White Blood Count 8.5, Red Blood Count 5.25, Hemoglobin 15.2, Hematocrit 45.6, Mean Corpuscular Volume 87, Mean Corpuscular Hemoglobin 29.0, Mean Corpuscular Hemoglobin Concent 33.4, Red Cell Distribution Width 12.6, Platelet Count 233, Mean Platelet Volume 10.0, Neutrophils (%) (Auto) 79.6H, Lymphocytes (%) (Auto) 12.3L, Monocytes (%) (Auto) 6.5, Eosinophils (%) (Auto) 1.0, Basophils (%) (Auto ) 0.6, Sodium Level 147H, Potassium Level 3.6, Chloride Level 112H, Carbon Dioxide Level 22, Anion Gap 13, Blood Urea Nitrogen 21H, Creatinine 1.1, Estimat Glomerular Filtration Rate , Glucose Level 143H, Calcium Level 9.1, Total Bilirubin 0.8, Aspartate Amino Transf (AST/SGOT) 20, Alanine Aminotransferase (ALT/SGPT) 21, Alkaline Phosphatase 112, Pro-B-Type Natriuretic Peptide 390H, Total Protein 8.4H, Albumin 3.3L, Globulin 5.1, Albumin/Globulin Ratio 0.6L 07/29/17 12:45: Prothrombin Time [Pending], Prothromb Time International Ratio [Pending] Current Medications Medications (Trade) Dose Ordered Sig/Rex Route PRN Reason Start Time Stop Time Status Last Admin Dose Admin Acetaminophen (Tylenol) 650 mg Q6HR PRN ORAL Fever/Headache/Mild Pain 07/28/17 18:00 08/25/17 19:29 Aspirin (ASA) 81 mg DAILY ORAL 07/29/17 09:00 08/26/17 08:59 07/29/17 09:23 Benazepril HCl (Lotensin) 20 mg Q12HR ORAL 07/28/17 21:00 08/25/17 20:59 3/6/18 09:22 Dextrose (Dextrose 50%) STAT PRN IV Hypoglycemia 07/28/17 19:30 08/25/17 19:29 Docusate Sodium (Colace) 200 mg BEDTIME ORAL 07/28/17 21:00 08/25/17 20:59 Enoxaparin Sodium (Lovenox) 60 mg EVERY 12 HOURS SUBQ 07/29/17 21:00 08/28/17 20:59 Levofloxacin (Levaquin) 250 mg ONCE ONCE ORAL 07/30/17 14:00 07/30/17 14:01 Levofloxacin (Levaquin) 500 mg ONCE ONCE ORAL 07/29/17 14:00 07/29/17 14:01 Levothyroxine Sodium (Synthroid) 100 mcg DAILY@0630 ORAL 07/29/17 06:30 08/26/17 06:29 07/29/17 05:11 Memantine (Namenda) 10 mg BID ORAL 07/28/17 18:00 08/26/17 08:59 07/29/17 09:23 Potassium Chloride (K-Dur) 20 meq DAILY ORAL 07/29/17 09:00 08/26/17 08:59 07/29/17 09:23 Warfarin Sodium (Coumadin per pharmacy) 1 ea DAILY PRN MISC Per rx protocol 07/29/17 11:30 08/28/17 11:29 IDA TAM Jul 29, 2017 13:23
[2017-07-29 13:43] LABS: INR 1.2 (0.9-1.1)
[2017-07-29] MEDS ORDERED: Levofloxacin 500mg tab ORAL ONE (14:00)
--- NOTE | 2017-07-29 14:03 | Cardiology Progress Note ---
Assessment/Plan Assessment/Plan 1. Hypotension, resolved, transferred to the lower level of care, hemodynamically stable, continue hydration. 2. History of Alzheimer's dementia. 3. History of anemia. 4. Hypernatremia, free water deficit, consider hypotonic IV fluid. Subjective Subjective Transferred to the med-surg unit. Non-verbal Objective Last 24 Hour Vital Signs Date Time Temp Pulse Resp B/P (MAP) Pulse Ox O2 Delivery O2 Flow Rate FiO2 07/29/17 12:00 97.9 81 18 108/58 96 Room Air 97.9 07/29/17 09:22 149/99 07/29/17 08:00 97.2 100 20 149/99 94 Room Air 97.2 07/29/17 04:00 98.2 86 19 100/55 96 Room Air 98.2 07/29/17 00:00 93 Room Air 07/29/17 00:00 98.0 113 20 121/96 93 Room Air 98.0 07/28/17 20:40 142/70 07/28/17 20:36 95 Room Air 07/28/17 20:36 98.2 97 17 142/70 95 98.2 07/28/17 16:00 98.6 96 20 111/67 93 Room Air 98.6 07/28/17 16:00 98.6 96 20 111/67 93 98.6 Intake and Output 07/28/17 07/29/17 19:00 07:00 Intake Total 245 ml Balance 245 ml Intake Oral 190 ml IV Total 55 ml # Voids 2 2 # Bowel Movements 2 Laboratory Tests Test 07/29/17 08:25 07/29/17 12:45 White Blood Count 8.5 K/UL (4.8-10.8) Red Blood Count 5.25 M/UL (4.70-6.10) Hemoglobin 15.2 G/DL (14.2-18.0) Hematocrit 45.6 % (42.0-52.0) Mean Corpuscular Volume 87 FL (80-99) Mean Corpuscular Hemoglobin 29.0 PG (27.0-31.0) Mean Corpuscular Hemoglobin Concent 33.4 G/DL (32.0-36.0) Red Cell Distribution Width 12.6 % (11.6-14.8) Platelet Count 233 K/UL (150-450) Mean Platelet Volume 10.0 FL (6.5-10.1) Neutrophils (%) (Auto) 79.6 % (45.0-75.0) H Lymphocytes (%) (Auto) 12.3 % (20.0-45.0) L Monocytes (%) (Auto) 6.5 % (1.0-10.0) Eosinophils (%) (Auto) 1.0 % (0.0-3.0) Basophils (%) (Auto) 0.6 % (0.0-2.0) Sodium Level 147 MMOL/L (136-145) H Potassium Level 3.6 MMOL/L (3.5-5.1) Chloride Level 112 MMOL/L (98-107) H Carbon Dioxide Level 22 MMOL/L (21-32) Anion Gap 13 mmol/L (5-15) Blood Urea Nitrogen 21 mg/dL (7-18) H Creatinine 1.1 MG/DL (0.55-1.30) Estimat Glomerular Filtration Rate mL/min (>60) Glucose Level 143 MG/DL (74-106) H Calcium Level 9.1 MG/DL (8.5-10.1) Total Bilirubin 0.8 MG/DL (0.2-1.0) Aspartate Amino Transf (AST/SGOT) 20 U/L (15-37) Alanine Aminotransferase (ALT/SGPT) 21 U/L (12-78) Alkaline Phosphatase 112 U/L (46-116) Pro-B-Type Natriuretic Peptide 390 pg/mL (0-125) H Total Protein 8.4 G/DL (6.4-8.2) H Albumin 3.3 G/DL (3.4-5.0) L Globulin 5.1 g/dL Albumin/Globulin Ratio 0.6 (1.0-2.7) L Prothrombin Time Pending Prothromb Time International Ratio Pending Microbiology Date/Time Source Procedure Growth Status 07/26/17 18:00 Nasal Nares MRSA Culture - Final NO METHICILLIN RESISTANT STAPH AUREUS... Complete 07/26/17 14:15 Nasal Nares Influenza Types A,B Antigen (LLUVIA) - Final Complete 07/26/17 15:15 Urine,Clean Catch Urine Culture - Final NO GROWTH AFTER 48 HOURS Complete 07/26/17 18:00 Rectum VRE Culture - Final NO VANCOMYCIN RESISTANT ENTEROCOCCUS ... Complete Objective GENERAL: The patient is a pleasant 86-year-old gentleman, who is awake, but nonverbal, in no apparent respiratory distress. HEENT: Atraumatic and normocephalic. Anicteric. Pupils are equal, round, and reactive to light and accommodation. Extraocular muscles intact. NECK: JVP is less than 5 cm. No carotid bruits. Carotid upstroke is 2+ bilaterally. CVS: Normal S1 and S2. Regular rate and rhythm. Tachycardic. No murmurs, gallops, or rubs. PMI is at fourth intercostal space in the midclavicular line. LUNGS: Diminished breath sounds in both bases. ABDOMEN: Soft, nontender, and nondistended. No hepatosplenomegaly. Positive bowel sounds. EXTREMITIES: No evidence of edema, clubbing, or cyanosis. CARLOZ HOBBS Jul 29, 2017 14:03
[2017-07-29] MEDS ORDERED: Warfarin Sodium 5mg ORAL ONE (17:00)
[2017-07-29] MEDS ORDERED: Enoxaparin 60mg Inj SUBQ SCH (21:00)
--- NOTE | 2017-07-30 08:30 | Consultation ---
DATE OF CONSULTATION: 07/29/2017 NOTE: POOR AUDIO HEMATOLOGY/ONCOLOGY CONSULTATION CONSULTING PHYSICIAN: Jesus Manuel Mitchell M.D. REQUESTING PHYSICIAN: Cesar Khan M.D. REASON FOR CONSULTATION: Evaluation of DVT. IDENTIFYING DATA: Dear Dr. Khan, The patient is a pleasant 86-year-old male with past medical history significant for DVT of the lower extremities, hypertension, hypothyroidism, and dementia, at this time presents to the ER with hypoxia. O2 saturation noted to be above 95%. No signs of . No fevers, chills, or night sweats. No pulmonary embolism. No cancer noted. discharged on apixaban. MEDICATIONS: Aspirin, gemfibrozil, lactulose, levothyroxine, and potassium chloride. PAST MEDICAL HISTORY: As noted above. PAST SURGICAL HISTORY: None noted. FAMILY HISTORY: Noncontributory. ALLERGIES: No known drug allergies. REVIEW OF SYSTEMS: CONSTITUTIONAL: No fever, chills, or night sweats. SKIN: No rashes, bumps, or itching. HEENT: No headache, hearing or vision changes. BREASTS: No lumps, pain, or discharge. PULMONARY: No cough, sputum, or shortness of breath. GASTROINTESTINAL: No nausea, vomiting, or diarrhea. GENITOURINARY: No dysuria, frequency, or urgency. MUSCULOSKELETAL: No joint swelling, muscle pain, or trauma. PHYSICAL EXAMINATION: VITAL SIGNS: Reviewed. GENERAL: No acute distress. PULMONARY: Decreased breath sounds. CARDIOVASCULAR: Regular rate. No S3 or S4. ABDOMEN: Soft, nontender, and nondistended. EXTREMITIES: No cyanosis, swelling, or edema reported. LABORATORY DATA: WBC , hemoglobin 14.2, and platelet count . INR of 1.2. Chemistry, BUN of 21 and creatinine 1.1. ASSESSMENT AND RECOMMENDATIONS: 1. Deep venous thrombosis of lower extremity. The patient is okay to be discharged on apixaban. The patient continue, however, the patient was discharged actually on Lovenox and both treatments will be okay. 2. Failure to thrive. Comfort care. The patient eating. 3. Hypotension, related to dehydration. Closely monitor. Has been seen by Cardiology. 4. Anemia of chronic disease. Closely monitor. 5. Hyponatremia. currently improving. 6. Alzheimer's dementia. I appreciate the consultation. Jesus Manuel Mitchell M.D. DR: AIDA JOB#: [id number] CC:
--- NOTE | 2017-07-31 12:04 | Discharge Summary ---
Discharge Summary Hospital Course Date of Admission Jul 26, 2017 at 14:26 Date of Discharge Jul 29, 2017 at 16:30 Admitting Diagnosis Shortness of Breath HPI Iain Barragan is a 86 year old male who was admitted on Jul 26, 2017 at 14:26 for Shortness Of Breath Hospital Course [id number] Discharge Discharge Disposition Patient was discharged to SNF/Subacute Facility(03) Discharge Diagnoses: Alejandra Iqbal NP Jul 31, 2017 12:04
--- NOTE | 2017-07-31 13:48 | Diagnostic Imaging Report ---
Indication: Dysphasia Procedure and findings: Real-time fluoroscopic imaging performed in a lateral projection in conjunction with the speech pathologist evaluation. Variable consistencies of barium given per mouth. Findings: Significant abnormalities of both oral and pharyngeal phases of swallowing are demonstrated. Total fluoroscopic time 231 seconds. Trace aspiration demonstrated on multiple sequences. There was no cough elicited. Abnormal video swallow. Please refer to speech pathology evaluation for more information.
--- NOTE | 2017-07-31 23:15 | Discharge Summary 2 SIG ---
DATE OF ADMISSION: 07/26/2017 DATE OF DISCHARGE: 07/29/2017 CONSULTANTS: 1. Therese De M.D. 2. Frank Crockett M.D. 3. Jacky Upton M.D. BRIEF HOSPITAL COURSE: The patient is an 86-year-old male, who came from [facility] due to shortness of breath. The patient was hypoxic and tachycardic at the [facility]. The patient has past medical history significant for dementia, Alzheimer disease, anemia, hypertension, and GERD. On evaluation at ED, blood work showed no leukocytosis. Lactate was 2.5. Troponin was negative. He had a chest x-ray done that showed basilar atelectasis with mildly elevated left hemidiaphragm. His EKG was in normal sinus rhythm with no acute ischemic changes. He was started on IV bolus and antibiotic. The patient is DNR. He was then admitted for evaluation of pneumonia and dyspnea with possible sepsis. He was seen by Infectious Disease specialist and was continued on Zithromax and started on Rocephin. He was given respiratory treatment. He was initially placed on NPO pending swallow evaluation. Videoscopic swallow evaluation was done and recommended to continue with comfort feeding and for quality of life was recommended liquefied pureed honey like thick liquids soup consistency diet. He had diarrhea, lactulose was discontinued. Family refused PEG placement. He was continued on comfort feedings. He also had an episode of hypotension, which responded with IV hydration. Stool was negative for C. difficile. Blood and urine culture did not isolate any growth. He was negative for influenza A and B. He had a venous duplex done that showed a recanalized chronic thrombus in the superficial femoral vein. Left leg showed patent deep venous system. No evidence of thrombus. He was eventually discharged back to [facility]. FINAL DIAGNOSES: 1. Sepsis. 2. Pneumonia. 3. Dementia. 4. Hypotension, resolved. 5. Hypernatremia. 6. High risk for aspiration. 7. Hypothyroidism. 8. Deep vein thrombosis of the lower extremity. 9. Anemia of chronic disease. DISPOSITION: The patient was discharged to [facility]. DISCHARGE MEDICATIONS: Refer to medication list. Ali Hadadz, M.D. I have been assigned to dictate discharge summary on this account and I was not involved in the patient's management. Alejandra Iqbal N.P. DR: ADRIAN JOB#: [id number] CC: PABLITO
--- NOTE | 2017-08-06 16:41 | Cardiology Report ---
APPROVED REPORT EKG Measurement Heart [id number] Sinus tachycardia Left anterior fascicular block Possible Lateral infarct, age undetermined Abnormal ECG
== END 2017-07-29 16:30 | DRG 871 ==
LOC: EDBD 13:35 → EMR 13:50 → 2E 14:26 → EDBEDREQ 16:24 → 2E 17:22 → 4W 07-28 16:01
DX: A41.9 Sepsis, unspecified organism (principal); J18.9 Pneumonia, unspecified organism; I82.409 Acute embolism and thrombosis of unspecified deep veins of unspecified lower extremity; F03.90 Unspecified dementia, unspecified severity, without behavioral disturbance, psychotic disturbance, mood disturbance, and anxiety; E86.0 Dehydration; D63.8 Anemia in other chronic diseases classified elsewhere; E87.1 Hypo-osmolality and hyponatremia; E03.9 Hypothyroidism, unspecified; K21.9 Gastro-esophageal reflux disease without esophagitis; I10 Essential (primary) hypertension; R09.02 Hypoxemia; E78.5 Hyperlipidemia, unspecified; Z66 Do not resuscitate; R62.7 Adult failure to thrive
CPT/HCPCS: 36415; 71045; 74230; 80053; 81003; 82550; 82553; 83605; 83880; 84484; 85025; 85610; 86710; 87040; 87081; 87086; 87324; 93005; 93970; 99285; J8499